=== PATIENT | male | born 1940 ===

== ENCOUNTER → 2021-07-07 | Outpatient (CLI) | payer OTHER ==
[~2021-07-07] VITALS: Ht 175.3 cm; Wt 68.9 kg
[~2021-07-07] MED LIST: ADVIL200 M3 PO; AMBIEN 10 MG TA10 MG PO; EDARBYCLOR 40-1 EACH PO; VITAMIN D32400 UNIT/ PO
[2021-07-07 08:59] VITALS: BP 191/102
--- NOTE | 2021-07-07 09:17 | NUR ---
[facility] Assessment: 1. History of Osteoarthritis: Not Applicable History of Rheumatoid Arthritis: Not Applicable 2. Height: 5 ft. 9 in. 175.3 cm. Weight: 152.0 lb. oz. 68.947 kg. Patient's BMI: 22.4 3. Vital Signs: BP: 191/102 Pulse: 65 Resp: 16 Temp: 02 Sat: 100 ECG Mon: 4. Pain Intensity: 5 5. Fall Risk: Dizziness: Y Needs help standing or walking: N Fallen in the last 3 months: N Fall risk comments: 6. Patient on Blood Thinner: None 7. History of Hypertension: Y 8. Opioid Therapy greater than 6 weeks: Opiate Contract Signed: 9. Risk Assessment Tool Provided: 0 LOW RISK 10. Functional Assessment Tool: 11. Recreational Drug Use: Never Drug Type: Tobacco Use: Never Smoker Tobacco Type: Amount or Packs/day: How Many Years: Alcohol Use: No Frequency: Quant:
== END ==
LOC: PAIN 06-30 00:13
PROVIDERS: ATTEND Anesthesiology Pain Medicine
DX: M79.601 Pain in right arm (principal); M79.602 Pain in left arm; M79.604 Pain in right leg; M79.605 Pain in left leg; G60.8 Other hereditary and idiopathic neuropathies; Z88.1 Allergy status to other antibiotic agents; Z88.8 Allergy status to other drugs, medicaments and biological substances; Z79.899 Other long term (current) drug therapy